=== PATIENT | female | born 1970 | race African-American/Black ===

== ENCOUNTER 2020-06-12 14:38 | Emergency (ER) | payer OTHER, SELFPAY ==
--- NOTE | ~2020-06-12 | XR_ITS ---
EXAMINATION: RADIOGRAPHS RIGHT HAND/WRIST CLINICAL INFORMATION: Pain after injury COMPARISON: None TECHNIQUE: 4 views of the right hand/wrist were obtained FINDINGS: Visualized portion of the distal radius and ulna demonstrate no fracture. Carpal rows are well aligned without carpal bone fracture. No metacarpal or phalangeal fracture. Distal joint spaces are well-maintained diffusely. No radiopaque foreign body. XR/XR hand wrist RT IMPRESSION: No fracture.
[2020-06-12 14:52] VITALS: BP 137/81; PULSE 90; RESP 16; TEMP 36.7; O2SAT 100; BMI 54.1
--- NOTE | 2020-06-12 17:55 | ED_ITS ---
HPI - Extremity Problem General Chief complaint: Extremity Injury, Upper Stated complaint: hand injury Time Seen by Provider: 06/12/20 17:55 Source: patient Mode of arrival: ambulatory Limitations: no limitations History of Present Illness HPI Narrative: Patient is a 50-year-old female with a past medical history of sick sinus syndrome, COPD, obesity and PE who comes in complaining of right hand pain while moving a television today. She states that the television dropped on her hand than it is now painful, swollen and bruising. She is able to make a fist with some pain so she thought she would come to the ED to make sure she did not break anything. She did not try taking any medications to control the pain, has not used ice or any kind of wrap prior to arrival to the ED. Related Data Allergies Allergy/AdvReac Type Severity Reaction Status Date / Time NSAIDS (Non-Steroidal Allergy Stomach Verified 06/12/20 17:37 Anti-Inflamma Upset Penicillins Allergy Hives Verified 06/12/20 17:37 Sulfa (Sulfonamide Allergy Hives Verified 06/12/20 17:37 Antibiotics) Review of Systems Review of Systems: Yes all other systems are reviewed and are negative [facility] Past Medical History Medical History Asthma COPD (chronic obstructive pulmonary disease) Obesity, morbid Pacemaker Pulmonary embolism Sick sinus syndrome Smoker Social History Social History Smoked in Last 30 Days: No Use of substances other than those prescribed or required for medical reasons: No Advance Directives: No Advance Directives Information Provided: No Physical Exam Vital Signs: Vital Signs: Last Vital Signs Temp 98.1 F 06/12/20 14:52 Pulse 90 06/12/20 14:52 Resp 16 06/12/20 14:52 BP 137/81 06/12/20 14:52 Pulse Ox 100 06/12/20 14:52 Body Mass Index 54.1 Const: General: cooperative, healthy appearing, comfortable and no acute distress Nutritional Appearance: obese Orientation/consciousness: patient oriented x3 Neck: Neck: Yes normal visual inspection, Yes full ROM and Yes supple Resp: Effort & Inspection: normal respiratory effort and able to speak in complete sentences Neuro: General: patient oriented x3 Extrem: Right upper extremity: elbow/forearm Details: normal to inspection and normal ROM; no tenderness and no swelling, wrist (right) Details: normal to inspection and tenderness Location: of the distal radius and of the distal ulna and Extremity exam: right hand (right) Details: neuromotor exam normal, tendon exam normal, normal ROM of fingers (with pain), swelling and ecchymosis Location: of the dorsal hand, of the 2nd digit, of the 3rd digit and of the 4th digit; no unusual warmth, no abrasions and no lacerations Course Course Course Narrative: X-ray reveals no fracture MDM - Extremity (Nontraumatic) Imaging Data Right hand wrist x-ray: Attestation: I personally reviewed and interpreted this imaging study as follows: My impression: no fracture Radiologist's impression: [address] [id number] ReportSigned Patient: Batool RaoMR#: [id number]: 1970Acct:[id number]/Sex: 50 / FADM Date: 06/12/20Loc: HO.EDAttending Dr: Ordering Physician: Shira Singleton PA-C Date of Service: 06/12/20 Procedure(s): XR hand wrist RT Accession Number(s): [id number] cc: Shira Singleton PA-C~ EXAMINATION: RADIOGRAPHS RIGHT HAND/WRIST CLINICAL INFORMATION: Pain after injury COMPARISON: None TECHNIQUE: 4 views of the right hand/wrist were obtained FINDINGS: Visualized portion of the distal radius and ulna demonstrate no fracture. Carpal rows are well aligned without carpal bone fracture. No metacarpal or phalangeal fracture. Distal joint spaces are well-maintained diffusely. No radiopaque foreign body. XR/XR hand wrist RT IMPRESSION: No fracture. Dictated By:TANNER VILLEGAS MDSigned By:<Electronically signed by TANNER VILLEGAS MD in OV>06/12/201811 DD/ 02TD/TT: Firer Watertender: Discharge Plan Discharge Clinical Impression: Contusion of hand, right Qualifiers: Encounter type: initial encounter Qualified Code(s): S60.221A - Contusion of right hand, initial encounter Patient Disposition: Home, Self-Care Instructions: Contusion in Adults (ED) Additional Instructions: Your right hand and wrist x-rays showed no acute fracture. Please rest your hand and wrist, you can use an Ranjit bandage for comfort, ice multiple times daily, Tylenol or Advil for pain. If pain does not improve, please follow-up with your PCP in the next week.
== END 2020-06-12 18:51 | disposition home or self-care (01) ==
PROVIDERS: Emergency Provider Emergency Medicine Emergency Medical Services
DX: S60.221A Contusion of right hand, initial encounter (principal); M79.641 Pain in right hand; Y29.XXXA Contact with blunt object, undetermined intent, initial encounter; Y93.9 Activity, unspecified; Y92.009 Unspecified place in unspecified non-institutional (private) residence as the place of occurrence of the external cause; Y99.9 Unspecified external cause status
CPT/HCPCS: 73110; 73130; 99284

== ENCOUNTER 2020-08-02 11:58 | Emergency (ER) | payer MEDICAID, SELFPAY ==
--- NOTE | ~2020-08-02 | XR_ITS ---
EXAMINATION: XR SACRUM AND COCCYX CLINICAL INFORMATION: Fall, pain. COMPARISON: None TECHNIQUE: 2 views of the sacrum and 2 views of the coccyx were obtained. FINDINGS: There is no visible fracture involving the sacrum. The coccyx is hypoplastic. The presacral postsurgical soft tissues are normal. XR/XR sacrum coccyx min 2V IMPRESSION: Unremarkable sacrum. Hypoplastic coccyx appears unremarkable.
[2020-08-02 12:06] VITALS: BP 121/82; PULSE 77; RESP 20; TEMP 35.1; O2SAT 93; BMI 56.9
--- NOTE | 2020-08-02 13:43 | ED_ITS ---
HPI - Back Pain/Injury General Chief Complaint: Back Pain/Injury <MALGORZATA Velasco Last Filed: 08/02/20 14:26> Stated Complaint: back pain <MALGORZATA Velasco Last Filed: 08/02/20 14:26> Time Seen by Provider: 08/02/20 13:34 <MALGORZATA Velasco Last Filed: 08/02/20 14:26> Source: patient <MALGORZATA Velasco Last Filed: 08/02/20 14:26> Mode of arrival: ambulatory <MALGORZATA Velasco Last Filed: 08/02/20 14:26> Limitations: no limitations <MALGORZATA Velasco Last Filed: 08/02/20 14:26> History of Present Illness HPI Narrative: Trip and fall 1.5 weeks ago landing on buttocks. Persistent pain. Able to ambulate with cane which isbaseline. Follow-up appt this week with PCP. No radiation of pain. No numbness/tingling. NO incontinence. No head injury ir LOC, <MALGORZATA Velasco Last Filed: 08/02/20 14:26> Related Data Home Medications: Previous Rx's Medication Instructions Recorded cyclobenzaprine 10 mg PO TID PRN #10 tab 08/02/20 lidocaine [Lidoderm] 1 patch TOPICAL DAILY #15 ea 08/02/20 <MALGORZATA Velasco Last Filed: 08/02/20 14:26> Allergies/Adverse Reactions: Allergies Allergy/AdvReac Type Severity Reaction Status Date / Time NSAIDS (Non-Steroidal Allergy Stomach Verified 06/12/20 17:37 Anti-Inflamma Upset Penicillins Allergy Hives Verified 06/12/20 17:37 Sulfa (Sulfonamide Allergy Hives Verified 06/12/20 17:37 Antibiotics) <MALGORZATA Velasco Last Filed: 08/02/20 14:26> Review of Systems Review of Systems: Yes all other systems are reviewed and are negative <MALGORZATA Velasco Last Filed: 08/02/20 14:26> Constitutional: Constitutional: Reports no additional constitutional complaints, Denies body ache(s), Denies chills, Denies fever(s), Denies headache(s) and Denies weakness <Nova Blandon NP - Last Filed: 08/02/20 14:26> Eyes: Eyes: Reports no additional eye complaints and Denies change in vision <Nova Blandon [employer] - Last Filed: 08/02/20 14:26> ENT: Reports system reviewed and no additional complaints, except as documented, Denies dizziness, Denies headache(s), Denies nasal congestion, Denies nasal discharge and Denies neck pain <Nova Blandon [employer] - Last Filed: 08/02/20 14:26> Cardiovascular: Cardiovascular: Reports no additional cardiovascular complaints, Denies chest pain, Denies leg edema and Denies dyspnea <Nova Blandon [employer] - Last Filed: 08/02/20 14:26> Respiratory: Respiratory: Reports no additional respiratory complaints, Denies cough and Denies dyspnea <Nova Blandon NP - Last Filed: 08/02/20 14:26> Gastrointestinal: Gastrointestinal: Reports no additional gastrointestinal complaints, Denies abdominal pain, Denies diarrhea, Denies nausea and Denies vomiting <Nova Blandon NP - Last Filed: 08/02/20 14:26> Genitourinary: Genitourinary: Reports no additional female genitourinary complaints and Denies urinary incontinence <Nova Blandon [employer] - Last Filed: 08/02/20 14:26> Musculoskeletal: Musculoskeletal: Reports no additional musculoskeletal complaints, Reports back pain, Denies arthralgias, Denies joint swelling, Denies neck pain, Denies numbness and Denies tingling <Nova Blandon [employer] - Last Filed: 08/02/20 14:26> Integumentary/Breasts: Skin/Breast: Reports system reviewed and no additional complaints, except as docu and Denies rash <Nova Blandon [employer] - Last Filed: 08/02/20 14:26> Neurologic: Reports system reviewed and no additional complaints, except as documented, Denies Abnormal speech present, Denies dizziness, Denies headache(s), Denies numbness, Denies tingling and Denies weakness <Nova Blandon NP - Last Filed: 08/02/20 14:26> [facility] Past Medical History Attestation statement: The following information was validated with the patient. <Nova Blandon NP - Last Filed: 08/02/20 14:26> Source: old records reviewed and nursing notes reviewed <Nova Blandon NP - Last Filed: 08/02/20 14:26> Medical History: Medical History Asthma COPD (chronic obstructive pulmonary disease) Obesity, morbid Pacemaker Pulmonary embolism Sick sinus syndrome Smoker <Nova Blandon NP - Last Filed: 08/02/20 14:26> Social History Social History: Social History Patient Tobacco Use Status: Current everyday Tobacco user <Nova Blandon NP - Last Filed: 08/02/20 14:26> Physical Exam Vital Signs: Vital Signs: Last Vital Signs Temp 95.2 F L 08/02/20 12:06 Pulse 77 08/02/20 12:06 Resp 20 08/02/20 12:06 BP 121/82 08/02/20 12:06 Pulse Ox 93 08/02/20 12:06 Body Mass Index 56.9 <Nova Blandon NP - Last Filed: 08/02/20 14:26> Vital Signs: Last Vital Signs Temp 95.2 F L 08/02/20 12:06 Pulse 77 08/02/20 12:06 Resp 20 08/02/20 12:06 BP 121/82 08/02/20 12:06 Pulse Ox 93 08/02/20 12:06 Body Mass Index 56.9 <Jn Mckinney MD - Last Filed: 09/08/20 11:06> Const: General: cooperative, healthy appearing, comfortable and no acute distress <Nova Blandon NP - Last Filed: 08/02/20 14:26> Orientation/consciousness: patient oriented x3 <Nova Blandon NP - Last Filed: 08/02/20 14:26> Limitations: no limitations <Nova Blandon NP - Last Filed: 08/02/20 14:26> HENMT: Head: Yes normal to inspection <Nova Blandon NP - Last Filed: 08/02/20 14:26> Ears: hearing grossly normal bilaterally <Nova Blandon NP - Last Filed: 08/02/20 14:26> General nose exam: Normal external nose present <Nova Blandon NP - Last Filed: 08/02/20 14:26> Face and sinus: Yes normal facial exam <Nova Blandon NP - Last Filed: 08/02/20 14:26> Mouth: Normal oral and palatal mucosa present <Nova Blandon [employer] - Last Filed: 08/02/20 14:26> Throat: Yes posterior oropharynx normal <Nova Blandon NP - Last Filed: 08/02/20 14:26> Eyes: General: appearance normal, both eyes and all related structures <Nova Blandon NP - Last Filed: 08/02/20 14:26> Pupils: Equal, round and reactive pupils present <Nova Blandon [employer] - Last Filed: 08/02/20 14:26> Neck: Neck: Yes normal visual inspection <Nova Blandon NP - Last Filed: 08/02/20 14:26> Chest: Chest palpation & inspection: normal inspection of the chest <Herman Blandon NP - Last Filed: 08/02/20 14:26> Resp: Effort & Inspection: normal respiratory effort <Nova Blandon NP - Last Filed: 08/02/20 14:26> Auscultation: clear to auscultation bilaterally <Nova Blandon [employer] - Last Filed: 08/02/20 14:26> Cardio: Rate: regular rate <Nova Blandon NP - Last Filed: 08/02/20 14:26> Rhythm: regular rhythm <Nova Blandon NP - Last Filed: 08/02/20 14:26> Peripheral pulses: Peripheral pulses 2+ throughout <Nova Blandon NP - Last Filed: 08/02/20 14:26> GI: Inspection: Yes normal to inspection <Nova Blandon NP - Last Anderson ed: 08/02/20 14:26> Palpation (GI): Soft to palpation and nontender <Nova Blandon NP - Last Filed: 08/02/20 14:26> Auscultation: normal bowel sounds <Nova Blandon NP - Last Filed: 08/02/20 14:26> Back/Spine/Pelvis: Other: Sacral tenderness. no step offs or deformities. No redness/warmth or swelling. <Nova Blandon NP - Last Filed: 08/02/20 14:26> Thoracic/Lumbar Spine: thoracic and lumbar spine normal to inspection <Nova Blandon NP - Last Filed: 08/02/20 14:26> Skin: General skin exam: no rashes or lesions noted <Nova Blandon NP - Last Filed: 08/02/20 14:26> Neuro: General: patient oriented x3, no focal motor deficits and normal sensation to monofilament <Nova Blandon NP - Last Filed: 08/02/20 14:26> Cranial nerves: Yes Equal, round and reactive pupils present <Nova Blandon NP - Last Filed: 08/02/20 14:26> Cognition (Neuro): normal cognition <Nova Blandon NP - Last Filed: 08/02/20 14:26> Speech: No Abnormal speech present <Nova Blandon NP - Last Filed: 08/02/20 14:26> Gait exam (Neuro): Normal gait present <Nova Blandon NP - Last Filed: 08/02/20 14:26> Motor exam (neuro): 5/5 motor strength present throughout <Nova Blandon NP - Last Filed: 08/02/20 14:26> Extrem: General: Yes normal to inspection <Nova Blandon NP - Last Filed: 08/02/20 14:26> Course Course Course Narrative: Sacral/ccocyx tenderness s/p mechanicall fall with no head injury. Ambulating at baseline. No neuro deficits. Well appearing. Will chevk xray. -1430-X-rays show no acute finding. Likely contusion. Reviewed worrisome signs/symptoms with patient and when to return to ED. Comfortable with discharge home. <Nova Blandon NP - Last Filed: 08/02/20 14:26> I have reviewed the chart <Jn Mckinney MD - Last Filed: 09/08/20 11:06> MDM - Back Pain/Injury Medical Records Attestation: I reviewed the patient's medical records. <Nova Blandon NP - Last Filed: 08/02/20 14:26> Lab Data Attestation: I reviewed the patient's lab results. <Nova Blandon NP - Last Filed: 08/02/20 14:26> Imaging Data sacral/ccocyx xray: Attestation: I personally reviewed and interpreted this imaging study as follows: <Nova Blandon NP - Last Filed: 08/02/20 14:26> Radiologist's impression: [address] [id number] ReportSigned Patient: Batool RaoMR#: [id number]: [id number]:[id number]/Sex: 50 / FADM Date: 08/02/20Loc: HO.EDAttending Dr: Ordering Physician: NOVA BLANDON NP Date of Service: 08/02/20 Procedure(s): XR sacrum coccyx min 2V Accession Number(s): [id number] cc: NOVA BLANDON NP~ EXAMINATION: XR SACRUM AND COCCYX CLINICAL INFORMATION: Fall, pain. COMPARISON: None TECHNIQUE: 2 views of the sacrum and 2 views of the coccyx were obtained. FINDINGS: There is no visible fracture involving the sacrum. The coccyx is hypoplastic. The presacral postsurgical soft tissues are normal. XR/XR sacrum coccyx min 2V IMPRESSION: Unremarkable sacrum. Hypoplastic coccyx appears unremarkable. <Nova Blandon NP - Last Filed: 08/02/20 14:26> Discharge Plan Discharge Clinical Impression: Lumbar contusion <Nova Blandon NP - Last Filed: 08/02/20 14:26> Patient Disposition: Home, Self-Care <Nova Blandon NP - Last Filed: 08/02/20 14:26> Instructions: Contusion in Adults (ED) <Nova Blandon NP - Last Filed: 08/02/20 14:26> Additional Instructions: Heat or ice gentle stretching Keep appt with primary care Your x-rays showed no fractures <Nova Blandon NP - Last Filed: 08/02/20 14:26> Prescriptions: New cyclobenzaprine 10 mg tablet 10 mg PO TID PRN (Reason: muscle spasm) Qty: 10 RF: 0 lidocaine [Lidoderm] 5 % adhesive patch,medicated 1 patch topical DAILY Qty: 15 RF: 0 <Nova Blandon NP - Last Filed: 08/02/20 14:26> Referrals: Carrie Son MD [Primary Care Provider] - 2 days <Nova Blandon NP - Last Filed: 08/02/20 14:26> Interventions: ED Discharge Assessment Last Done: 08/02/20 14:43 <Nova Blandon NP - Last Filed: 08/02/20 14:26> Discharge Date/Time: 08/02/20 14:46 <Nova Blandon NP - Last Filed: 08/02/20 14:26>
== END 2020-08-02 14:46 | disposition home or self-care (01) ==
PROVIDERS: Emergency Provider Emergency Medicine; PCP Family Medicine
DX: S30.0XXA Contusion of lower back and pelvis, initial encounter (principal); W19.XXXA Unspecified fall, initial encounter; Y93.9 Activity, unspecified; Y92.9 Unspecified place or not applicable; Y99.9 Unspecified external cause status
CPT/HCPCS: 72220; 99283; 99284

== ENCOUNTER 2020-09-13 08:00 | Outpatient (REF) | payer MEDICAID, SELFPAY ==
--- NOTE | ~2020-09-13 | XR_ITS ---
EXAMINATION: XR AP VIEW OF BOTH KNEES AND SUNRISE AND LATERAL VIEWS OF THE RIGHT KNEE CLINICAL INFORMATION: Pain, right knee COMPARISON: None TECHNIQUE: AP views of both knees standing as well as lateral and patellar views of the right knee. FINDINGS: AP view of the left knee demonstrates prominent chondrocalcinosis. The medial and lateral joint spaces are maintained. No fracture is identified. Three views of the right knee demonstrate maintenance of the joint spaces. No acute fracture or effusion is identified. There is minimal spurring seen about the medial and lateral joint space compartments. There is spurring undersurface of the patella at the patellofemoral joint. XR/XR knee standing BI IMPRESSION: 1. Chondrocalcinosis of the left knee. 2. Mild tricompartment degenerative change of the right knee without fracture or effusion.
--- NOTE | ~2020-09-13 | XR_ITS ---
EXAMINATION: XR AP VIEW OF BOTH KNEES AND SUNRISE AND LATERAL VIEWS OF THE RIGHT KNEE CLINICAL INFORMATION: Pain, right knee COMPARISON: None TECHNIQUE: AP views of both knees standing as well as lateral and patellar views of the right knee. FINDINGS: AP view of the left knee demonstrates prominent chondrocalcinosis. The medial and lateral joint spaces are maintained. No fracture is identified. Three views of the right knee demonstrate maintenance of the joint spaces. No acute fracture or effusion is identified. There is minimal spurring seen about the medial and lateral joint space compartments. There is spurring undersurface of the patella at the patellofemoral joint. XR/XR knee RT 2V IMPRESSION: 1. Chondrocalcinosis of the left knee. 2. Mild tricompartment degenerative change of the right knee without fracture or effusion.
== END 2020-09-13 08:01 | disposition home or self-care (01) ==
LOC: HO.HOSX 08:00
PROVIDERS: Visit Provider Orthopaedic Surgery
DX: M25.561 Pain in right knee (principal); S89.91XA Unspecified injury of right lower leg, initial encounter
CPT/HCPCS: 73560; 73565; 99202

== ENCOUNTER → 2020-09-30 12:32 | Outpatient (BNVA) | payer MEDICAID, SELFPAY | PROVIDERS: PCP Family Medicine; Visit Provider Physician Assistant | DX: M17.11 Unilateral primary osteoarthritis, right knee (principal) | CPT/HCPCS: 20610; 99212; J1040 ==

== ENCOUNTER → 2021-01-10 13:28 | Outpatient (BNVA) | payer MEDICAID, SELFPAY | PROVIDERS: PCP Family Medicine; Visit Provider Internal Medicine Gastroenterology | DX: Z98.84 Bariatric surgery status (principal) | CPT/HCPCS: 99202 ==